=== PATIENT | female | born 1980 | race Caucasian/White ===

== ENCOUNTER 2017-09-08 08:05 | Emergency (ER) | payer OTHER, MEDICAID ==
[~2017-09-08] VITALS: Ht 149.9 cm; Wt 84.0 kg
[~2017-09-08 08:05] MED LIST: ACYC400T PO; ALBU8HFA IH; ATOR40TA72 PO; CLON-527 PO; DIPH25CA83 PO; GUAN2TAB PO; LEVO75TA7 PO; NORG1TAB83 PO; OXYC-145 PO; TRAZ-143 PO; ZOLP12.531 PO
[2017-09-08] MEDS ORDERED: NAPR-56 PO (08:45)
[2017-09-08] MEDS ORDERED: CYCL-1 PO (08:45)
[2017-09-08] MEDS ORDERED: ketorolac trometh inj. 60 MG/2 ML VIAL IM ONE (08:45)
[2017-09-08] MEDS ORDERED: orphenadrine citrate 60mg/2ml inj. IM ONE (08:45)
[2017-09-08 09:10] VITALS: BP 118/92
[2017-09-09] MEDS ORDERED: NAPR-56 PO (22:10)
[2017-09-09] MEDS ORDERED: TRAM1TAB36 PO (22:10)
== END 2017-09-08 09:11 | disposition home or self-care (01) ==
LOC: ER 08:06
DX: S39.012A Strain of muscle, fascia and tendon of lower back, initial encounter (principal); J44.9 Chronic obstructive pulmonary disease, unspecified; G89.29 Other chronic pain; F15.90 Other stimulant use, unspecified, uncomplicated; Z98.51 Tubal ligation status; Z79.899 Other long term (current) drug therapy; V87.7XXA Person injured in collision between other specified motor vehicles (traffic), initial encounter; Y93.89 Activity, other specified; Y92.89 Other specified places as the place of occurrence of the external cause; Y99.8 Other external cause status
CPT/HCPCS: 96372; 99284; J1885; J2360

== ENCOUNTER 2017-09-09 17:21 | Emergency (ER) | payer OTHER, MEDICAID ==
[~2017-09-09] VITALS: Ht 149.9 cm; Wt 84.5 kg
[~2017-09-09 17:21] MED LIST changes: +CYCL-1 PO; +NAPR-56 PO
[2017-09-09 17:47] VITALS: BP 138/97
[2017-09-09 19:19] LABS: URINE HCG NEGATIVE (NEG)
[2017-09-09 19:23] LABS: CLARITY,URINE SLIGHTLY CLOUDY (Clear); COLOR,URINE YELLOW (Yellow); GLUCOSE, URINE NEGATIVE (Neg); KETONES,URINE NEGATIVE (Neg); LEUKOCYTE ESTERASE ,URINE NEGATIVE (Neg); NITRITES, URINE NEGATIVE (Neg); OCCULT BLOOD,URINE NEGATIVE (Neg); PROTEIN,URINE NEGATIVE (Neg); UROBILINOGEN,URINE 0.2 E.U/dL (0.2-1.0)
[2017-09-09 19:26] LABS: UA COLLECTION TYPE CLN CATCH MIDSTREAM
[2017-09-09 19:32] LABS: D-DIMER 1.03 MG/L FEU (0-0.50)
[2017-09-09 19:33] LABS: BASOPHILS # (AUTO) 0.2 X10'3 (0-0.2); BASOPHILS % (AUTO) 1.3 % (0-1); EOSINOPHILS # (AUTO) 0.3 X10'3 (0-0.9); EOSINOPHILS % (AUTO) 1.7 % (0-6); HEMATOCRIT 40.5 % (35.0-45.0); HEMOGLOBIN 14.1 g/dl (12.0-16.0); LYMPHOCYTES # (AUTO) 4.8 X10'3 (1.1-4.8); LYMPHOCYTES % (AUTO) 30.1 % (21-51); MEAN CORPUSCULAR HEMOGLOBIN 29.5 PG (27.0-31.0); MEAN CORPUSCULAR HGB CONC 34.8 % (33.0-36.5); MEAN CORPUSCULAR VOLUME 84.8 FL (78-98); MEAN PLATELET VOLUME 9.6 FL (7.4-10.4); MONOCYTES # (AUTO) 0.8 X10'3 (0-0.9); MONOCYTES % (AUTO) 5.2 % (2-12); NEUTROPHILS # (AUTO) 9.8 X10'3 (1.8-7.7); NEUTROPHILS % (AUTO) 61.7 % (42-75); PLATELET COUNT 310 X10'3 (140-440); RED BLOOD COUNT 4.78 X10'6 (4.20-5.60); RED CELL DISTRIBUTION WIDTH 13.6 % (11.5-14.5)
[2017-09-09 19:33] LABS: BACTERIA,URINE NONE SEEN /HPF (Neg); RBC,URINE NONE SEEN /HPF (0-2); SQUAMOUS EPITHELIAL CELL,UR FEW /LPF (FEW); WBC,URINE NONE SEEN /HPF (0-4)
[2017-09-09 19:34] LABS: AMORPHOUS PHOSPHATES 1+
[2017-09-09 19:38] LABS: ALANINE AMINOTRANSFERASE 35 U/L (12-78); ALBUMIN 3.6 G/DL (3.4-5.0); ALBUMIN/GLOBULIN RATIO 0.9 (1.1-1.5); ALKALINE PHOSPHATASE 59 IU/L (46-116); ANION GAP 10 (8-16); ASPARTATE AMINO TRANSFERASE 21 U/L (10-37); BILIRUBIN,TOTAL 0.3 MG/DL (0.1-1.0); BLOOD UREA NITROGEN 12 MG/DL (7-18); BUN/CREATININE RATIO 16.7 (6.6-38.0); CALCIUM 8.6 MG/DL (8.5-10.1); CHLORIDE 104 MMOL/L (99-107); CREATININE 0.72 MG/DL (0.40-0.90); GLUCOSE 100 MG/DL (70-104); POTASSIUM 3.5 MMOL/L (3.5-5.1); SODIUM 138 MMOL/L (135-145); TOTAL CARBON DIOXIDE 23.6 MMOL/L (24-32); TOTAL PROTEIN 7.5 G/DL (6.4-8.2); eGFR > 90 ML/MIN
[2017-09-09] MEDS ORDERED: iohexol 350MG/ML 100ml bottle IV ONE (19:59)
[2017-09-09] MEDS ORDERED: magnesium 2GM in 50ml NS 50 ML IV ONE (20:00)
[2017-09-09] MEDS ORDERED: normal saline 1000ML IV soln IVB ONE (20:00)
[2017-09-09 20:38] LABS: URINE AMPHETAMINE SCREEN NEGATIVE (Neg); URINE BARBITUATE SCREEN NEGATIVE (Neg); URINE BENZODIAZEPINES SCREEN NEGATIVE (Neg); URINE CANNABINOID SCREEN NEGATIVE (Neg); URINE COCAINE SCREEN NEGATIVE (Neg); URINE METHADONE SCREEN NEGATIVE (Neg); URINE OPIATE SCREEN NEGATIVE (Neg); URINE PHENCYCLIDINE SCREEN NEGATIVE (Neg)
[2017-09-09 22:04] LABS: TOTAL CELLS COUNTED 100
[2017-09-09] MEDS ORDERED: NAPR-56 PO (22:10)
[2017-09-09] MEDS ORDERED: TRAM1TAB36 PO (22:10)
[2017-09-09 22:11] LABS: ANISOCYTOSIS FEW; PLATELET ESTIMATE NORMAL; SMUDGE CELLS 1+; TOXIC GRANULATION 1+
[2017-09-09 22:13] LABS: TOXIC VACUOLATION FEW
== END 2017-09-09 22:24 | disposition home or self-care (01) ==
LOC: ER 17:22
DX: S39.012A Strain of muscle, fascia and tendon of lower back, initial encounter (principal); J44.9 Chronic obstructive pulmonary disease, unspecified; F17.200 Nicotine dependence, unspecified, uncomplicated; F15.10 Other stimulant abuse, uncomplicated; G89.29 Other chronic pain; Z98.51 Tubal ligation status; Z88.1 Allergy status to other antibiotic agents; Z79.899 Other long term (current) drug therapy; V89.2XXA Person injured in unspecified motor-vehicle accident, traffic, initial encounter; Y93.89 Activity, other specified; Y92.410 Unspecified street and highway as the place of occurrence of the external cause; Y99.8 Other external cause status
CPT/HCPCS: 36415; 71275; 72100; 80053; 80305; 81001; 81025; 85025; 85379; 93971; 96361; 96365; 99285; J3475; J7030; Q9967

== ENCOUNTER 2017-12-12 04:29 | Emergency (ER) | payer MEDICAID, OTHER ==
[~2017-12-12] VITALS: Ht 149.9 cm; Wt 80.5 kg
[~2017-12-12 04:29] MED LIST changes: -NAPR-56 PO; +NORG1TAB3 PO; -NORG1TAB83 PO
[2017-12-12 04:34] VITALS: BP 126/79
[2017-12-12] MEDS ORDERED: PENI500T2 PO (04:45)
[2017-12-12] MEDS ORDERED: dexamethasone sod phosphate 10mg/ml inj PO STA (04:46)
[2017-12-12] MEDS ORDERED: penicillin V potassium 500mg tablet PO ONE (04:50)
== END 2017-12-12 05:02 | disposition home or self-care (01) ==
LOC: ER 04:29
DX: J02.9 Acute pharyngitis, unspecified (principal); J44.9 Chronic obstructive pulmonary disease, unspecified; G89.29 Other chronic pain; F15.10 Other stimulant abuse, uncomplicated; Z98.51 Tubal ligation status; Z79.899 Other long term (current) drug therapy; Z88.1 Allergy status to other antibiotic agents
CPT/HCPCS: 99283; J1100

== ENCOUNTER 2018-09-20 15:09 | Emergency (ER) | payer MEDICAID ==
[~2018-09-20] VITALS: Ht 167.6 cm; Wt 280.0 kg
[~2018-09-20 15:09] MED LIST changes: -TRAZ-143 PO; +TRAZ-218 PO
[2018-09-20 15:13] VITALS: BP 119/83
[2018-09-20] MEDS ORDERED: HYDROcodone/acetaminophen 5mg/325mg tablet PO ONE (17:00)
[2018-09-20] MEDS ORDERED: LORazepam 2 mg/ml vial IM ONE (18:15)
== END 2018-09-20 20:50 | disposition left against medical advice (07) ==
LOC: ER 15:10
DX: M54.2 Cervicalgia (principal); M54.12 Radiculopathy, cervical region; J44.9 Chronic obstructive pulmonary disease, unspecified; G89.29 Other chronic pain; F15.90 Other stimulant use, unspecified, uncomplicated; Z98.51 Tubal ligation status; Z88.1 Allergy status to other antibiotic agents; Z79.899 Other long term (current) drug therapy; W11.XXXA Fall on and from ladder, initial encounter; Y93.89 Activity, other specified; Y92.89 Other specified places as the place of occurrence of the external cause; Y99.9 Unspecified external cause status
CPT/HCPCS: 70450; 72125; 72128; 72141; 96372; 99285; J2060

== ENCOUNTER 2018-09-22 16:27 | Emergency (ER) | payer MEDICAID ==
[~2018-09-22] VITALS: Ht 149.9 cm; Wt 90.0 kg
[2018-09-22 16:36] VITALS: BP 128/84
[2018-09-22] MEDS ORDERED: GABA-532 PO (16:53)
== END 2018-09-22 17:22 | disposition home or self-care (01) ==
LOC: ER 16:28
DX: M54.2 Cervicalgia (principal); M79.602 Pain in left arm; M79.601 Pain in right arm; J44.9 Chronic obstructive pulmonary disease, unspecified; G89.29 Other chronic pain; F15.90 Other stimulant use, unspecified, uncomplicated; Z98.51 Tubal ligation status; Z88.1 Allergy status to other antibiotic agents; Z79.899 Other long term (current) drug therapy; W11.XXXD Fall on and from ladder, subsequent encounter
CPT/HCPCS: 99283

== ENCOUNTER 2018-09-27 14:48 | Emergency (ER) | payer MEDICAID ==
[~2018-09-27] VITALS: Ht 160 cm; Wt 81.8 kg
[~2018-09-27 14:48] MED LIST changes: +GABA-532 PO
[2018-09-27] MEDS ORDERED: ketorolac trometh inj. 60 MG/2 ML VIAL IM ONE (16:45)
[2018-09-27] MEDS ORDERED: diphenhydrAMINE 50 mg/ml inj IM ONE (16:45)
[2018-09-27] MEDS ORDERED: NAPR-1144 PO (16:46)
[2018-09-27 17:25] VITALS: BP 117/51
== END 2018-09-27 17:34 | disposition home or self-care (01) ==
LOC: ER 14:49
DX: G62.9 Polyneuropathy, unspecified (principal); R20.0 Anesthesia of skin; J44.9 Chronic obstructive pulmonary disease, unspecified; G89.29 Other chronic pain; F15.90 Other stimulant use, unspecified, uncomplicated; F17.210 Nicotine dependence, cigarettes, uncomplicated; Z98.51 Tubal ligation status; Z88.1 Allergy status to other antibiotic agents; Z79.899 Other long term (current) drug therapy
CPT/HCPCS: 96372; 99283; J1200; J1885

== ENCOUNTER 2018-11-21 04:09 | Emergency (ER) | payer MEDICAID ==
[~2018-11-21] VITALS: Ht 149.9 cm; Wt 91.7 kg
[~2018-11-21 04:09] MED LIST changes: +NAPR-1144 PO; -TRAZ-218 PO; +TRAZ-251 PO
[2018-11-21] MEDS ORDERED: dexamethasone sod phosphate 10mg/ml inj IV STA (04:25)
[2018-11-21] MEDS ORDERED: clindamycin 600mg/D5W 50ml 50 ML IV ONE (04:25)
[2018-11-21] MEDS ORDERED: normal saline 1000ML IV soln IVB ONE (04:25)
[2018-11-21] MEDS ORDERED: ketorolac trometh. 30mg/ml inj. IV ONE (04:25)
[2018-11-21] MEDS ORDERED: iohexol 300mg/ml 100ml inj. ONE (04:34)
[2018-11-21 05:12] LABS: BASOPHILS # (AUTO) 0.1 X10'3 (0-0.2); BASOPHILS % (AUTO) 0.6 % (0-1); EOSINOPHILS # (AUTO) 0.2 X10'3 (0-0.9); EOSINOPHILS % (AUTO) 1.2 % (0-6); HEMATOCRIT 37.4 % (35.0-45.0); HEMOGLOBIN 12.6 g/dl (12.0-16.0); LYMPHOCYTES # (AUTO) 4.1 X10'3 (1.1-4.8); LYMPHOCYTES % (AUTO) 23.2 % (21-51); MEAN CORPUSCULAR HEMOGLOBIN 28.6 PG (27.0-31.0); MEAN CORPUSCULAR HGB CONC 33.7 g/dL (33.0-36.5); MEAN CORPUSCULAR VOLUME 84.7 FL (78-98); MEAN PLATELET VOLUME 8.4 FL (7.4-10.4); MONOCYTES # (AUTO) 1.2 X10'3 (0-0.9); PLATELET COUNT 360 X10'3 (140-440); RED BLOOD COUNT 4.42 X10'6 (4.20-5.60); RED CELL DISTRIBUTION WIDTH 14.2 % (11.5-14.5); WHITE BLOOD COUNT 17.7 X10'3 (4.5-11.0)
--- NOTE | 2018-11-21 05:22 | NUR ---
Per Doctor Stella, there is not a need to swab patient because she already tested positive for strep at her urgent care.
[2018-11-21 05:25] LABS: ALANINE AMINOTRANSFERASE 56 U/L (12-78); ALBUMIN 2.5 G/DL (3.4-5.0); ALBUMIN/GLOBULIN RATIO 0.5 (1.1-1.5); ALKALINE PHOSPHATASE 102 IU/L (46-116); ANION GAP 11 (8-16); ASPARTATE AMINO TRANSFERASE 21 U/L (10-37); BILIRUBIN,TOTAL 0.2 MG/DL (0.1-1.0); BLOOD UREA NITROGEN 16 MG/DL (7-18); BUN/CREATININE RATIO 17.2 (6.6-38.0); CALCIUM 8.5 MG/DL (8.5-10.1); CHLORIDE 104 MMOL/L (99-107); CREATININE 0.93 MG/DL (0.40-0.90); GLUCOSE 108 MG/DL (70-104); POTASSIUM 3.6 MMOL/L (3.5-5.1); SODIUM 137 MMOL/L (135-145); TOTAL CARBON DIOXIDE 22.2 MMOL/L (24-32); TOTAL PROTEIN 7.2 G/DL (6.4-8.2); eGFR 68 ML/MIN
[2018-11-21 05:38] VITALS: BP 105/60
[2018-11-21] MEDS ORDERED: CLIN-96 PO (06:04)
== END 2018-11-21 06:11 | disposition home or self-care (01) ==
LOC: ER 04:09
DX: J36 Peritonsillar abscess (principal); J44.9 Chronic obstructive pulmonary disease, unspecified; G89.29 Other chronic pain; F15.90 Other stimulant use, unspecified, uncomplicated; Z98.51 Tubal ligation status; Z88.1 Allergy status to other antibiotic agents; Z79.2 Long term (current) use of antibiotics; Z79.899 Other long term (current) drug therapy
CPT/HCPCS: 36415; 70491; 80053; 85025; 96365; 96375; 99284; J1100; J1885; J7030; Q9967; J3490

== ENCOUNTER 2019-05-10 07:55 | Emergency (ER) | payer MEDICAID ==
[~2019-05-10] VITALS: Ht 147.3 cm; Wt 89.1 kg
[~2019-05-10 07:55] MED LIST changes: +CLIN-90 PO
--- NOTE | 2019-05-10 08:35 | NUR ---
PT REPORTS FALLING YESTERDAY AND REHURTING HER KNEE FROM PREVIOUS INJURY LAST MONTH. PTS KNEE NOT OBSERVED WITH ANY ABRASIONS OR SWELLING. PT WAS ABLE TO GET UP AND AMBULATE TO BATHROOM WITHOUT ASSIST.
[2019-05-10] MEDS ORDERED: ketorolac tromethamine 15mg/ml inj. IM ONE (09:15)
[2019-05-10] MEDS ORDERED: IBUP-1984 PO (09:32)
[2019-05-10 10:15] VITALS: BP 140/91
== END 2019-05-10 10:17 | disposition home or self-care (01) ==
LOC: ER 07:56 → MERGE 07:56 → ER 10:17
DX: S83.8X2A Sprain of other specified parts of left knee, initial encounter (principal); I10 Essential (primary) hypertension; E07.9 Disorder of thyroid, unspecified; F31.9 Bipolar disorder, unspecified; F15.90 Other stimulant use, unspecified, uncomplicated; F11.90 Opioid use, unspecified, uncomplicated; Z79.899 Other long term (current) drug therapy; W01.0XXA Fall on same level from slipping, tripping and stumbling without subsequent striking against object, initial encounter; Y93.89 Activity, other specified; Y92.89 Other specified places as the place of occurrence of the external cause; Y99.8 Other external cause status
CPT/HCPCS: 29505; 73564; 96372; 99284; J1885

== ENCOUNTER 2019-05-23 15:13 | Outpatient (CLI) | payer MEDICAID | END 2019-05-23 17:45 | disposition home or self-care (01) | LOC: ORTHO 15:13 → MERGE 16:00 → ORTHO 17:45 | PROVIDERS: ATTEND Orthopaedic Surgery | DX: S83.512A Sprain of anterior cruciate ligament of left knee, initial encounter (principal); S83.412A Sprain of medial collateral ligament of left knee, initial encounter; F17.200 Nicotine dependence, unspecified, uncomplicated; W01.198A Fall on same level from slipping, tripping and stumbling with subsequent striking against other object, initial encounter; Y93.89 Activity, other specified; Y92.89 Other specified places as the place of occurrence of the external cause; Y99.8 Other external cause status | CPT/HCPCS: G0463 ==

== ENCOUNTER 2019-08-02 07:59 | Day surgery (SDC) | payer MEDICAID ==
[2019-07-28 09:56] LABS: BASOPHILS # (AUTO) 0.2 X10'3 (0-0.2); BASOPHILS % (AUTO) 1.4 % (0-1); EOSINOPHILS # (AUTO) 0.3 X10'3 (0-0.9); EOSINOPHILS % (AUTO) 2.2 % (0-6); LYMPHOCYTES # (AUTO) 3.8 X10'3 (1.1-4.8); LYMPHOCYTES % (AUTO) 32.5 % (21-51); MEAN CORPUSCULAR HEMOGLOBIN 29.2 PG (27.0-31.0); MEAN CORPUSCULAR HGB CONC 34.5 g/dL (33.0-36.5); MEAN CORPUSCULAR VOLUME 84.7 FL (78-98); MEAN PLATELET VOLUME 9.1 FL (7.4-10.4); MONOCYTES # (AUTO) 0.6 X10'3 (0-0.9); MONOCYTES % (AUTO) 5.4 % (2-12); NEUTROPHILS # (AUTO) 6.8 X10'3 (1.8-7.7); NEUTROPHILS % (AUTO) 58.5 % (42-75); PRE OP HEMATOCRIT 42.5 % (35.0-45.0); PRE OP HEMOGLOBIN 14.7 g/dL (12.0-16.0); PRE OP PLATELET COUNT 329 X10'3 (140-440); RED BLOOD COUNT 5.03 X10'6 (4.20-5.60)
[2019-07-28 10:14] LABS: ALBUMIN 3.6 G/DL (3.4-5.0); ALBUMIN/GLOBULIN RATIO 0.9 (1.1-1.5); ALKALINE PHOSPHATASE 82 IU/L (46-116); BLOOD UREA NITROGEN 10 MG/DL (7-18); BUN/CREATININE RATIO 11.8 (6.6-38.0); CALCIUM 8.6 MG/DL (8.5-10.1); CHLORIDE 107 MMOL/L (99-107); CREATININE 0.85 MG/DL (0.40-0.90); PRE OP ALT 34 U/L (30-65); PRE OP ANION GAP 8 (8-16); PRE OP AST 21 U/L (10-37); PRE OP BILIRUB, TOTAL 0.2 MG/DL (0.0-1.0); PRE OP GLUCOSE 97 MG/DL (70-104); PRE OP POTASSIUM 3.9 MMOL/L (3.4-5.1); PRE OP SODIUM 138 MMOL/L (135-145); TOTAL CARBON DIOXIDE 22.9 MMOL/L (24-32); TOTAL PROTEIN 7.8 G/DL (6.4-8.2); eGFR 75 ML/MIN
[~2019-08-02] VITALS: Ht 149.9 cm; Wt 90.0 kg
[2019-08-02] VITALS (14 sets, daily range): BP systolic 102–122; BP diastolic 65–84
[~2019-08-02 07:59] MED LIST changes: -ACYC400T PO; -ALBU8HFA IH; -ATOR40TA72 PO; +BUPR150T8 PO; +CARI3CAP PO; -CLIN-90 PO; -CLON-527 PO; -CYCL-1 PO; -DIPH25CA83 PO; -GABA-532 PO; -GUAN2TAB PO; -NAPR-1144 PO; -NORG1TAB3 PO; +OXYB5TAB16 PO; -OXYC-145 PO; -TRAZ-251 PO; -ZOLP12.531 PO; +cefazolin/dext.iso 2gm/100ml 100 ML IV ONE; +famotidine 10mg tablet PO ONE; +ringers solution, lacted 1,000 ML IV SCH
[2019-08-02] MEDS ORDERED: ROPIVAcaine 0.5% (5mg/ml) 30ml vial ONE ×2 (10:14→10:22)
[2019-08-02] MEDS ORDERED: ceFAZolin 1000mg inj ONE (10:14)
[2019-08-02] MEDS ORDERED: fentaNYL /PF 50mcg/ml 5ml ampule ONE ×2 (10:22→11:44)
[2019-08-02] MEDS ORDERED: midazolam 2 mg/2 ml injection ONE (10:22)
[2019-08-02] MEDS ORDERED: propofol inj 20 ML IV ONE (10:23)
[2019-08-02] MEDS ORDERED: LIDOcaine 2% (20mg/ml) 5ml vial ONE (10:23)
[2019-08-02] MEDS ORDERED: sevoflurane 250ml liquid IH ONE (10:48)
[2019-08-02] MEDS ORDERED: dexamethasone sod phosphate 4mg/ml inj. ONE (11:20)
[2019-08-02] MEDS ORDERED: ondansetron/PF 4mg/2ml inj ONE (11:20)
[2019-08-02] MEDS ORDERED: ringers solution, lacted 1,000 ML IV SCH (11:28)
[2019-08-02] MEDS ORDERED: hydrALAZINE 20mg/ml inj. IV PRN (11:30)
[2019-08-02] MEDS ORDERED: fentaNYL/PF 50MCG/1 ML 2ML syringe IV PRN ×2 (11:30)
[2019-08-02] MEDS ORDERED: morphine 4 MG/ML inj SYRINge IV PRN (11:30)
[2019-08-02] MEDS ORDERED: labetalol 20mg/4ml (5mg/ml) syringe IV PRN (11:30)
[2019-08-02] MEDS ORDERED: ondansetron/PF 4mg/2ml inj IV PRN (11:30)
[2019-08-02] MEDS ORDERED: acetaminophen 1,000mg/100ml IV 100 ML IV ONE (11:35)
[2019-08-02] MEDS ORDERED: labetalol 20mg/4ml (5mg/ml) syringe IV ONE (11:49)
--- NOTE | 2019-08-02 12:44 | NUR ---
Received from OR via [facility] , accompanied by Anesthesiologist DR KOHLI and report given by Anesthesiolgist. PT AWAKE AND ALERT, SKIN PINK AND DRY, ABLE TO MOVE ALL EXTREMITIES WITH GOOD PEDAL PULSES. PIV RIGHT HAND PATENT, C/O SEVERE PAIN AT A LEVEL 8. DRESSING CLEAN DRY AND INTACT WITH BRACE APPLIED. ABD SOFT, NO C/O N/V.
[2019-08-02] MEDS: morphine 4 MG/ML inj SYRINge IV PRN ×2 (13:07→14:10)
[2019-08-02] MEDS ORDERED: diphenhydrAMINE 50 mg/ml inj IV PRN (13:15)
[2019-08-02] MEDS ORDERED: HYDROcodone/acetaminophen 10/325mg tab PO ONE (14:05)
--- NOTE | 2019-08-02 14:34 | NUR ---
PT AWAKE AND ALERT, SKIN PINK AND DRY, ABD SOFT, PEDAL PULSES PRESENT, PAIN LEVEL DECREASED TO 6, PIV RIGHT HAND D/CD CATH TIP INTACT, NO C/O NAUSEA, DRESSING DRY AND INTACT, BRACE IN PLACE,DISCHARGE INSTRUCTIONS GIVEN VERBALIZED UNDERSTANDING. DICHARGED VIA WHEELCHAIR TO PRIVATE VEHICLE
== END 2019-08-02 14:34 | disposition home or self-care (01) ==
LOC: PAS 07:59
PROVIDERS: ATTEND Orthopaedic Surgery
DX: S83.512A Sprain of anterior cruciate ligament of left knee, initial encounter (principal); S83.242A Other tear of medial meniscus, current injury, left knee, initial encounter; G89.18 Other acute postprocedural pain; J45.909 Unspecified asthma, uncomplicated; F31.9 Bipolar disorder, unspecified; F41.9 Anxiety disorder, unspecified; E03.9 Hypothyroidism, unspecified; E66.01 Morbid (severe) obesity due to excess calories; Z68.41 Body mass index [BMI] 40.0-44.9, adult; Z79.899 Other long term (current) drug therapy; Z98.890 Other specified postprocedural states; X58.XXXA Exposure to other specified factors, initial encounter; Y93.89 Activity, other specified; Y92.89 Other specified places as the place of occurrence of the external cause; Y99.8 Other external cause status
CPT/HCPCS: 29881; 29888; 36415; 64447; 80053; 82948; 85025; 93005; C1713; J0131; J0690; J1100; J1200; J2001; J2250; J2270; J2405; J2704; J3010; L1832; A4215; A4618; A6449; A7000; J2795; J3490; J7120

== ENCOUNTER 2019-08-22 15:18 | Outpatient (CLI) | payer MEDICAID ==
[~2019-08-22 15:18] MED LIST changes: -cefazolin/dext.iso 2gm/100ml 100 ML IV ONE; -famotidine 10mg tablet PO ONE; -ringers solution, lacted 1,000 ML IV SCH
== END 2019-08-22 16:07 | disposition home or self-care (01) ==
LOC: ORTHO 15:18
PROVIDERS: ATTEND Orthopaedic Surgery
DX: S83.512A Sprain of anterior cruciate ligament of left knee, initial encounter (principal); X58.XXXA Exposure to other specified factors, initial encounter; Y93.89 Activity, other specified; Y92.89 Other specified places as the place of occurrence of the external cause; Y99.8 Other external cause status
CPT/HCPCS: G0463

== ENCOUNTER 2020-04-25 09:06 | Emergency (ER) | payer MEDICAID ==
[~2020-04-25] VITALS: Ht 149.9 cm; Wt 91.7 kg
[2020-04-25 09:08] VITALS: BP 112/64
[2020-04-25] MEDS ORDERED: HYDROcodone/acetaminophen 10/325mg tab PO ONE (09:50)
[2020-04-25] MEDS ORDERED: ketorolac trometh inj. 60 MG/2 ML VIAL IM ONE (09:50)
== END 2020-04-25 10:10 | disposition home or self-care (01) ==
LOC: ER 09:07
DX: G89.29 Other chronic pain (principal); M25.562 Pain in left knee; J44.9 Chronic obstructive pulmonary disease, unspecified; F41.9 Anxiety disorder, unspecified; F31.9 Bipolar disorder, unspecified; F15.90 Other stimulant use, unspecified, uncomplicated; Z98.51 Tubal ligation status; Z98.890 Other specified postprocedural states; Z79.899 Other long term (current) drug therapy
CPT/HCPCS: 96372; 99283; J1885

== ENCOUNTER 2020-10-31 08:07 | Day surgery (SDC) | payer MEDICAID ==
[2020-10-25 11:15] LABS: BASOPHILS # (AUTO) 0.1 X10'3 (0-0.2); BASOPHILS % (AUTO) 1.4 % (0-1); EOSINOPHILS # (AUTO) 0.3 X10'3 (0-0.9); EOSINOPHILS % (AUTO) 2.9 % (0-6); LYMPHOCYTES # (AUTO) 3.6 X10'3 (1.1-4.8); MEAN CORPUSCULAR HEMOGLOBIN 28.7 PG (27.0-31.0); MEAN CORPUSCULAR HGB CONC 34.1 g/dL (33.0-36.5); MEAN CORPUSCULAR VOLUME 84.4 FL (78-98); MEAN PLATELET VOLUME 9.8 FL (7.4-10.4); MONOCYTES # (AUTO) 0.6 X10'3 (0-0.9); MONOCYTES % (AUTO) 6.2 % (2-12); NEUTROPHILS # (AUTO) 5.4 X10'3 (1.8-7.7); NEUTROPHILS % (AUTO) 53.5 % (42-75); PRE OP HEMATOCRIT 41.2 % (35.0-45.0); PRE OP PLATELET COUNT 284 X10'3 (140-440); RED BLOOD COUNT 4.88 X10'6 (4.20-5.60); RED CELL DISTRIBUTION WIDTH 14.3 % (11.5-14.5)
[2020-10-25 11:23] LABS: HCG SERUM QL NEGATIVE
[2020-10-25 11:28] LABS: ALBUMIN 3.4 G/DL (3.4-5.0); ALBUMIN/GLOBULIN RATIO 0.8 (1.1-1.5); ALKALINE PHOSPHATASE 66 IU/L (46-116); BLOOD UREA NITROGEN 21 MG/DL (7-18); BUN/CREATININE RATIO 27.3 (6.6-38.0); CALCIUM 8.9 MG/DL (8.5-10.1); CHLORIDE 105 MMOL/L (99-107); CREATININE 0.77 MG/DL (0.40-0.90); PRE OP ALT 24 U/L (30-65); PRE OP ANION GAP 11 (8-16); PRE OP AST 24 U/L (10-37); PRE OP BILIRUB, TOTAL 0.2 MG/DL (0.0-1.0); PRE OP GLUCOSE 94 MG/DL (70-104); PRE OP POTASSIUM 3.9 MMOL/L (3.4-5.1); PRE OP SODIUM 140 MMOL/L (135-145); TOTAL CARBON DIOXIDE 24.1 MMOL/L (24-32); TOTAL PROTEIN 7.5 G/DL (6.4-8.2); eGFR 83 ML/MIN
[~2020-10-31] VITALS: Ht 147.3 cm; Wt 85.7 kg
[~2020-10-31 08:07] MED LIST changes: +BUPR1PAT TOP; +CALC-1215 PO; -CARI3CAP PO; +CHOL100025 PO; +CYAN-51 PO; +FLUO-12 PO; +METH20TA PO; +MULT-1130 PO; +MULT-85 PO; +OMEG-143 PO; +OMEP10SU2 PO; -OXYB5TAB16 PO; +OXYB5TAB29 PO; +SIMV5TAB58 PO; +TEMA30CA PO; +TRAZ-251 PO; +ceFOXitin 2GM-NS 100mL ADDvant 100 ML IV ONE; +famotidine 20mg tablet PO ONE; +ringers solution, lacted 1,000 ML IV SCH
[2020-10-31 10:00] VITALS: BP 130/64
[2020-10-31] MEDS ORDERED: fentaNYL/PF 50MCG/1 ML 2ML syringe IV PRN ×2 (10:45)
[2020-10-31] MEDS ORDERED: labetalol 20mg/4ml (5mg/ml) syringe IV PRN (10:45)
[2020-10-31] MEDS ORDERED: morphine 2 MG/ML inj. syringe IV PRN (10:45)
[2020-10-31] MEDS ORDERED: morphine 4 MG/ML inj SYRINge IV PRN ×2 (10:45→16:00)
[2020-10-31] MEDS ORDERED: hydrALAZINE 20mg/ml inj. IV PRN (10:45)
[2020-10-31] MEDS ORDERED: ondansetron/PF 4mg/2ml inj IV PRN (10:45)
[2020-10-31] MEDS ORDERED: ringers solution, lacted 1,000 ML IV SCH (10:45)
[2020-10-31] MEDS ORDERED: LIDOcaine 1% W/epiNEPHrine 1:100,000 20ml vial ONE (11:54)
[2020-10-31] MEDS ORDERED: BUPIVAcaine 0.5% inj/PF 30 ML ONE (11:55)
[2020-10-31] MEDS ORDERED: neostigmine methylsulfate 1 MG/ML 10ml vial ONE (12:09)
[2020-10-31] MEDS ORDERED: sevoflurane 250ml liquid IH ONE (12:09)
[2020-10-31] MEDS ORDERED: rocuronium 10mg/ml inj IV ONE ×2 (12:09→12:15)
[2020-10-31] MEDS ORDERED: LIDOcaine 2% (20mg/ml) 5ml vial ONE (12:14)
[2020-10-31] MEDS ORDERED: propofol inj 20 ML IV ONE (12:14)
[2020-10-31] MEDS ORDERED: fentaNYL/PF 50MCG/1 ML 2ML syringe ONE (12:14)
[2020-10-31] MEDS ORDERED: ondansetron/PF 4mg/2ml inj ONE (12:14)
[2020-10-31] MEDS ORDERED: midazolam 1 mg/ML 2ml injection ONE (12:14)
[2020-10-31] MEDS ORDERED: glycopyrrolate 0.2mg/ml inj ONE (12:15)
[2020-10-31] MEDS ORDERED: dexamethasone sod phosphate 4mg/ml inj. ONE (12:26)
[2020-10-31] MEDS ORDERED: labetalol 20mg/4ml (5mg/ml) syringe IV ONE (13:25)
[2020-10-31] MEDS ORDERED: BUPIVAcaine 0.5% inj/PF 30 ml vial IJ ONE (13:25)
[2020-10-31] MEDS ORDERED: ceFAZolin 1000mg inj ONE (13:51)
[2020-10-31] MEDS ORDERED: morphine 10mg/ml inj. ONE (14:04)
[2020-10-31] MEDS ORDERED: bacitracin 15gm ointment TP ONE (14:27)
[2020-10-31] MEDS ORDERED: ketorolac trometh. 30mg/ml inj. ONE (14:36)
--- NOTE | 2020-10-31 14:45 | NUR ---
Received from OR via [facility], accompanied by Anesthesiologist KAMILLA and report given by Anesthesiolgist. PT DROWSY, OXYGENATING WELL ON 10 LPM O2 VIA MASK, NO RESP DISTRESS NOTED.PT EXTREMELY PAINFUL, CRYING AND WRITHING ON GURNEY. MEDICATED PRN SEE EMAR. 3 ABD TROCAR SITES WITH LARGE BANDAIDS CDI. VSS, NO NAUSEA.
[2020-10-31] MEDS ORDERED: acetaminophen 1,000mg/100ml IV 100 ML IV SCH (16:00)
[2020-10-31] MEDS ORDERED: midazolam 1 mg/ML 2ml injection IV ONE (16:00)
--- NOTE | 2020-10-31 17:35 | NUR ---
PAIN LEVEL UNDER CONTROL, PER PT AFTER MEDS GIVEN IN PACU. VSS. TOLERATING PO FLUIDS WELL. DC INSTRUCTIONS EXPLAINED TO PT, SHE VERBALIZED UNDERSTANDING. DCD IN STABLE CONDITION, TAKEN TO CAR VIA WC.
== END 2020-10-31 17:35 | disposition home or self-care (01) ==
LOC: PAS 08:07
PROVIDERS: ATTEND Obstetrics & Gynecology
DX: N92.0 Excessive and frequent menstruation with regular cycle (principal); N94.6 Dysmenorrhea, unspecified; N39.3 Stress incontinence (female) (male); N90.69 Other specified hypertrophy of vulva; K66.8 Other specified disorders of peritoneum; Z20.822 Contact with and (suspected) exposure to COVID-19; N85.4 Malposition of uterus; I45.10 Unspecified right bundle-branch block; E03.9 Hypothyroidism, unspecified; F31.9 Bipolar disorder, unspecified; F90.9 Attention-deficit hyperactivity disorder, unspecified type; E78.00 Pure hypercholesterolemia, unspecified; M81.0 Age-related osteoporosis without current pathological fracture; F41.9 Anxiety disorder, unspecified; K21.9 Gastro-esophageal reflux disease without esophagitis; E66.9 Obesity, unspecified; Z68.39 Body mass index [BMI] 39.0-39.9, adult; J45.909 Unspecified asthma, uncomplicated; Z87.891 Personal history of nicotine dependence; Z88.8 Allergy status to other drugs, medicaments and biological substances; Z98.51 Tubal ligation status; Z98.890 Other specified postprocedural states; Z79.899 Other long term (current) drug therapy
CPT/HCPCS: 36415; 49321; 56620; 57288; 58563; 80053; 82948; 84703; 85025; 86885; 86900; 86901; 93005; A4649; C1758; C1771; J0690; J0694; J1100; J1885; J2001; J2250; J2270; J2405; J2704; J2710; J3010; J7030; J7120; U0003; U0005; A4355; A4618; A6258; A7000; J3490

== ENCOUNTER 2021-02-18 17:42 | Emergency (ER) | payer MEDICAID ==
[~2021-02-18] VITALS: Ht 147.3 cm; Wt 182.4 kg
[~2021-02-18 17:42] MED LIST changes: -ceFOXitin 2GM-NS 100mL ADDvant 100 ML IV ONE; -famotidine 20mg tablet PO ONE; -ringers solution, lacted 1,000 ML IV SCH
[2021-02-18 18:23] LABS: BASOPHILS % (AUTO) 0.8 % (0-1); EOSINOPHILS % (AUTO) 0.4 % (0-6); HEMATOCRIT 43.3 % (35.0-45.0); HEMOGLOBIN 14.5 g/dl (12.0-16.0); LYMPHOCYTES # (AUTO) 1.7 X10'3 (1.1-4.8); LYMPHOCYTES % (AUTO) 39.9 % (21-51); MEAN CORPUSCULAR HEMOGLOBIN 27.8 PG (27.0-31.0); MEAN CORPUSCULAR HGB CONC 33.6 g/dL (33.0-36.5); MEAN CORPUSCULAR VOLUME 82.9 FL (78-98); MEAN PLATELET VOLUME 9.9 FL (7.4-10.4); MONOCYTES # (AUTO) 0.1 X10'3 (0-0.9); MONOCYTES % (AUTO) 2.8 % (2-12); NEUTROPHILS # (AUTO) 2.4 X10'3 (1.8-7.7); NEUTROPHILS % (AUTO) 56.1 % (42-75); PLATELET COUNT 190 X10'3 (140-440); RED BLOOD COUNT 5.22 X10'6 (4.20-5.60); RED CELL DISTRIBUTION WIDTH 14.3 % (11.5-14.5); WHITE BLOOD COUNT 4.3 X10'3 (4.5-11.0)
[2021-02-18 18:32] LABS: D-DIMER 0.95 MG/L FEU (0-0.50)
[2021-02-18 18:34] VITALS: BP 110/72
[2021-02-18 18:39] LABS: ALANINE AMINOTRANSFERASE 33 U/L (12-78); ALBUMIN 3.7 G/DL (3.4-5.0); ALBUMIN/GLOBULIN RATIO 0.9 (1.1-1.5); ALKALINE PHOSPHATASE 86 IU/L (46-116); ANION GAP 11 (8-16); ASPARTATE AMINO TRANSFERASE 43 U/L (10-37); BILIRUBIN,TOTAL 0.3 MG/DL (0.1-1.0); BLOOD UREA NITROGEN 9 MG/DL (7-18); BUN/CREATININE RATIO 9.5 (6.6-38.0); CALCIUM 8.1 MG/DL (8.5-10.1); CHLORIDE 109 MMOL/L (99-107); CREATININE 0.95 MG/DL (0.40-0.90); GLUCOSE 100 MG/DL (70-104); POTASSIUM 4.2 MMOL/L (3.5-5.1); SODIUM 142 MMOL/L (135-145); TOTAL CARBON DIOXIDE 21.6 MMOL/L (24-32); TOTAL PROTEIN 7.6 G/DL (6.4-8.2); eGFR 65 ML/MIN
[2021-02-18] MEDS ORDERED: iohexol 350MG/ML 100ml bottle IV ONE (19:07)
[2021-02-18] MEDS ORDERED: acetaminophen 325mg tablet PO ONE (19:20)
--- NOTE | 2021-02-18 19:32 | NUR ---
PT TO CT, PT C/O HEADACHE, Hung THOMPSON GAVE VERBAL ORDER FOR TYLENOL 650MG, PT ALSO C/O SOB NOW, ASKING FOR BREATHING TX, PT IS TALKING FULL SENTENCES, "CHEST TIGHTNESS"
[2021-02-18] MEDS ORDERED: ALBUTEROL INHALER 1 PUFF/90 MCG INHALER IH PRN (19:40)
[2021-02-18] MEDS ORDERED: ALBU6.7H9 INH (20:06)
[2021-02-18] MEDS ORDERED: AZIT500T PO (20:06)
[2021-02-18] MEDS ORDERED: DEXA4TAB67 PO (20:06)
== END 2021-02-18 21:09 | disposition home or self-care (01) ==
LOC: ER 17:43
DX: U07.1 COVID-19 (principal); J12.82 Pneumonia due to coronavirus disease 2019; R07.89 Other chest pain; R06.02 Shortness of breath; J44.9 Chronic obstructive pulmonary disease, unspecified; G89.29 Other chronic pain; F41.9 Anxiety disorder, unspecified; F31.9 Bipolar disorder, unspecified; F17.200 Nicotine dependence, unspecified, uncomplicated; F15.90 Other stimulant use, unspecified, uncomplicated; Z98.51 Tubal ligation status; Z88.6 Allergy status to analgesic agent; Z88.8 Allergy status to other drugs, medicaments and biological substances; Z79.2 Long term (current) use of antibiotics; Z79.899 Other long term (current) drug therapy
CPT/HCPCS: 36415; 71045; 71275; 80053; 83880; 84484; 85025; 85379; 93005; 94640; 99285; Q9967; 94760

== ENCOUNTER 2022-10-26 05:29 | Day surgery (SDC) | payer MEDICAID ==
[2022-10-22 16:19] LABS: BASOPHILS # (AUTO) 0.1 X10'3 (0-0.2); BASOPHILS % (AUTO) 0.4 % (0-1); EOSINOPHILS # (AUTO) 0.2 X10'3 (0-0.9); EOSINOPHILS % (AUTO) 1.2 % (0-6); LYMPHOCYTES # (AUTO) 2.8 X10'3 (1.1-4.8); LYMPHOCYTES % (AUTO) 21.7 % (21-51); MEAN CORPUSCULAR HEMOGLOBIN 29.6 PG (27.0-31.0); MEAN CORPUSCULAR HGB CONC 33.3 g/dL (33.0-36.5); MEAN PLATELET VOLUME 9.5 FL (7.4-10.4); MONOCYTES # (AUTO) 0.6 X10'3 (0-0.9); NEUTROPHILS # (AUTO) 9.1 X10'3 (1.8-7.7); NEUTROPHILS % (AUTO) 71.7 % (42-75); PRE OP HEMATOCRIT 41.4 % (35.0-45.0); PRE OP HEMOGLOBIN 13.8 g/dL (12.0-16.0); PRE OP PLATELET COUNT 283 X10'3 (140-440); RED BLOOD COUNT 4.65 X10'6 (4.20-5.60); RED CELL DISTRIBUTION WIDTH 13.1 % (11.5-14.5)
[2022-10-22 16:37] LABS: ALBUMIN 3.6 G/DL (3.4-5.0); ALBUMIN/GLOBULIN RATIO 0.9 (1.1-1.5); ALKALINE PHOSPHATASE 52 IU/L (46-116); BLOOD UREA NITROGEN 14 MG/DL (7-18); BUN/CREATININE RATIO 20.9 (10.0-20.0); CALCIUM 9.3 MG/DL (8.5-10.1); CHLORIDE 103 MMOL/L (99-107); CREATININE 0.67 MG/DL (0.40-0.90); PRE OP ALT 23 U/L (30-65); PRE OP ANION GAP 9 (8-16); PRE OP AST 21 U/L (10-37); PRE OP BILIRUB, TOTAL 0.3 MG/DL (0.0-1.0); PRE OP GLUCOSE 102 MG/DL (70-104); PRE OP POTASSIUM 3.7 MMOL/L (3.4-5.1); PRE OP SODIUM 138 MMOL/L (135-145); TOTAL CARBON DIOXIDE 26.3 MMOL/L (24-32); TOTAL PROTEIN 7.4 G/DL (6.4-8.2); eGFR > 90 ML/MIN
[~2022-10-26] VITALS: Ht 147.3 cm; Wt 59.1 kg
[2022-10-26] VITALS (8 sets, daily range): BP systolic 94–106; BP diastolic 61–68
[~2022-10-26 05:29] MED LIST changes: +BUPR-352 PO; -BUPR150T8 PO; -BUPR1PAT TOP; -CALC-1215 PO; -CHOL100025 PO; -CYAN-51 PO; -FLUO-12 PO; -METH20TA PO; -MULT-1130 PO; -MULT-85 PO; -OMEG-143 PO; -OXYB5TAB29 PO; +SIMV-342 PO; -SIMV5TAB58 PO; -TEMA30CA PO; -TRAZ-251 PO; +ringers solution, lacted 1,000 ML IV SCH
[2022-10-26] MEDS ORDERED: famotidine 20mg tablet PO ONE (05:30)
[2022-10-26] MEDS ORDERED: cefazolin 2gm/D5W 100mL 100 ML IV ONE (05:30)
[2022-10-26] MEDS ORDERED: BUPIVAcaine/PF 2.5 mg/ml (0.25%) 30ml vial ONE (06:47)
[2022-10-26] MEDS ORDERED: LIDOcaine 1% 30ml preserv. free vial ONE (07:37)
[2022-10-26] MEDS ORDERED: MIDAZolam 1 MG/ML 5ML VIAL ONE (07:40)
[2022-10-26] MEDS ORDERED: fentaNYL/PF 50MCG/1 ML 2ML syringe ONE (07:40)
[2022-10-26] MEDS ORDERED: ketorolac trometh. 30mg/ml inj. ONE (07:51)
--- NOTE | 2022-10-26 08:18 | NUR ---
Received from OR via [facility], accompanied by Anesthesiologist DR JERONIMO and report given by Anesthesiologist AND CARBONIZER. PT DROWSY, VSS, PT GROANS W/MOVEMENT OF RIGHT ARM, RIGHT ELBOW/FOREARM AND HAND/WRIST W/BIAS DRSG COVERING INCISION/DRSG CDI, FINGERS PWD, SNAPPER ON 1-2 SECONDS. Addendum: 10/26/22 at 0840 by Lashonda Pichardo RN Amended: Links added.
[2022-10-26] MEDS ORDERED: acetaminophen 1,000mg/100ml IV 100 ML IV SCH (08:25)
--- NOTE | 2022-10-26 09:18 | NUR ---
PT UP AND STABLE W/AMBULATION, VOIDED. PAIN TO ARM/HAND MINIMAL. DRSG REMAINS CDI. D/C INSTRUCTIONS GIVEN AND GONE OVER W/PT WHO VERBALIZED UNDERSTANDING. PT D/CD TO HOME VIA W/C TO PRIVATE VEHICLE W/O INCIDENT. Addendum: 10/26/22 at 0937 by Lashonda Pichardo RN Amended: Links added.
== END 2022-10-26 09:18 | disposition home or self-care (01) ==
LOC: PAS 05:29
PROVIDERS: ATTEND Orthopaedic Surgery Hand Surgery
DX: G56.01 Carpal tunnel syndrome, right upper limb (principal); G56.21 Lesion of ulnar nerve, right upper limb; J45.909 Unspecified asthma, uncomplicated; I45.10 Unspecified right bundle-branch block; K21.9 Gastro-esophageal reflux disease without esophagitis; E03.9 Hypothyroidism, unspecified; F90.9 Attention-deficit hyperactivity disorder, unspecified type; F31.9 Bipolar disorder, unspecified; F41.9 Anxiety disorder, unspecified; Z98.890 Other specified postprocedural states; Z79.899 Other long term (current) drug therapy; Z88.8 Allergy status to other drugs, medicaments and biological substances; F17.210 Nicotine dependence, cigarettes, uncomplicated; F12.90 Cannabis use, unspecified, uncomplicated; Z98.51 Tubal ligation status; Z98.84 Bariatric surgery status; F19.11 Other psychoactive substance abuse, in remission; Z80.9 Family history of malignant neoplasm, unspecified
CPT/HCPCS: 29848; 36415; 64718; 80053; 82948; 85025; 93005; J0131; J0690; J1885; J2250; J3010; J3490; J7030; J7120; Z7506; Z7512; A4215; A6449; A7000

== ENCOUNTER 2023-04-19 05:34 | Day surgery (SDC) | payer MEDICAID ==
[2023-04-15 11:31] LABS: BASOPHILS # (AUTO) 0.1 X10'3 (0-0.2); BASOPHILS % (AUTO) 0.7 % (0-1); EOSINOPHILS # (AUTO) 0.2 X10'3 (0-0.9); LYMPHOCYTES # (AUTO) 3.3 X10'3 (1.1-4.8); LYMPHOCYTES % (AUTO) 34.8 % (21-51); MEAN CORPUSCULAR HEMOGLOBIN 30.4 PG (27.0-31.0); MEAN CORPUSCULAR HGB CONC 33.9 g/dL (33.0-36.5); MEAN CORPUSCULAR VOLUME 89.8 FL (78-98); MEAN PLATELET VOLUME 9.4 FL (7.4-10.4); MONOCYTES # (AUTO) 0.6 X10'3 (0-0.9); NEUTROPHILS # (AUTO) 5.3 X10'3 (1.8-7.7); NEUTROPHILS % (AUTO) 56.5 % (42-75); PRE OP HEMOGLOBIN 14.6 g/dL (12.0-16.0); PRE OP PLATELET COUNT 279 X10'3 (140-440); PRE OP WHITE BLOOD COUNT 9.4 10'3 (4.8-10.8); RED BLOOD COUNT 4.78 X10'6 (4.20-5.60); RED CELL DISTRIBUTION WIDTH 13.4 % (11.5-14.5)
[2023-04-15 11:47] LABS: ALBUMIN 3.2 G/DL (3.4-5.0); ALBUMIN/GLOBULIN RATIO 0.8 (1.1-1.5); ALKALINE PHOSPHATASE 61 IU/L (46-116); BLOOD UREA NITROGEN 9 MG/DL (7-18); BUN/CREATININE RATIO 11.4 (10.0-20.0); CALCIUM 8.5 MG/DL (8.5-10.1); CHLORIDE 108 MMOL/L (99-107); CREATININE 0.79 MG/DL (0.40-0.90); PRE OP ALT 23 U/L (30-65); PRE OP ANION GAP 7 (8-16); PRE OP BILIRUB, TOTAL 0.2 MG/DL (0.0-1.0); PRE OP GLUCOSE 82 MG/DL (70-104); PRE OP POTASSIUM 3.9 MMOL/L (3.4-5.1); PRE OP SODIUM 140 MMOL/L (135-145); eGFR 80 ML/MIN
[2023-04-15 12:14] LABS: PRE OP AST 18 U/L (10-37)
[~2023-04-19] VITALS: Ht 147.3 cm; Wt 59.7 kg
[~2023-04-19 05:34] MED LIST changes: +BUPR-317 PO; -BUPR-352 PO; +BUPR300F3 SL; +HYDR-3972 PO; -OMEP10SU2 PO; +cefazolin 2gm/D5W 100mL 100 ML IV ONE; +famotidine 20mg tablet PO ONE
[2023-04-19 05:40] VITALS: BP 93/59; PULSE 75; RESP 16; TEMP 97.9; O2SAT 97; O2SAT 99
[2023-04-19] MEDS ORDERED: BUPIVAcaine/PF 2.5mg/ml (0.25%) 10ml vial ONE (07:09)
[2023-04-19] MEDS ORDERED: fentaNYL/PF 50MCG/1 ML 2ML syringe ONE (07:52)
[2023-04-19] MEDS ORDERED: midazolam 1 mg/ML 2ml injection ONE (07:52)
[2023-04-19] MEDS ORDERED: BUPIVAcaine/PF 2.5mg/ml (0.25%) 10ml vial IJ ONE (08:10)
[2023-04-19 08:25] VITALS: BP 91/50; PULSE 79; RESP 14
[2023-04-19] MEDS ORDERED: ringers solution, lacted 1,000 ML IV SCH (08:25)
[2023-04-19] MEDS ORDERED: proCHLORperazine 10 MG/2 ml inj IV PRN (08:25)
[2023-04-19] MEDS ORDERED: morphine 2 MG/ML inj. syringe IV PRN (08:25)
[2023-04-19] MEDS ORDERED: morphine 4 MG/ML inj SYRINge IV PRN (08:25)
[2023-04-19] MEDS ORDERED: meperidine/PF 25mg/ml syringe IV PRN ×3 (08:25)
[2023-04-19] MEDS ORDERED: ondansetron/PF 4mg/2ml inj IV PRN (08:25)
--- NOTE | 2023-04-19 08:25 | NUR ---
Received from OR via [facility] IN STABLE CONDITION , accompanied by Anesthesiologist and [facility] report given by [facility] AND Anesthesiolgist. Addendum: 04/19/23 at 0846 by Twila Helms RN Amended: Links added.
[2023-04-19 08:30] VITALS: BP 108/74; PULSE 81; RESP 16; O2SAT 100
[2023-04-19 08:40] VITALS: BP 102/69; PULSE 77; RESP 15; O2SAT 100
[2023-04-19] MEDS ORDERED: LIDOcaine 0.5% (5mg/ml) 50ml vial ONE (08:45)
[2023-04-19] MEDS ORDERED: propofol inj 20 ML IV ONE (08:45)
[2023-04-19 08:50] VITALS: BP 104/60; PULSE 74; RESP 19; O2SAT 100
--- NOTE | 2023-04-19 08:55 | NUR ---
PATIENT DISCHARGED FROM PACU IN STABLE CONDITION AFTER VERBAL AND WRITTEN DISCHARGE INSTRUCTIONS GIVEN. PATIENT GAVE VERBAL UNDERSTANDING OF INSTRUCTIONS GIVEN. PATIENT LEFT FACILITY VIA WHEELCHAIR WITH RN. Addendum: 04/19/23 at 0900 by Twila Helms RN Amended: Links added.
== END 2023-04-19 08:55 | disposition home or self-care (01) ==
LOC: PAS 05:34
PROVIDERS: ATTEND Orthopaedic Surgery Hand Surgery
DX: G56.02 Carpal tunnel syndrome, left upper limb (principal); M65.342 Trigger finger, left ring finger; M65.332 Trigger finger, left middle finger; J45.909 Unspecified asthma, uncomplicated; F17.290 Nicotine dependence, other tobacco product, uncomplicated; K21.9 Gastro-esophageal reflux disease without esophagitis; E03.9 Hypothyroidism, unspecified; F31.9 Bipolar disorder, unspecified; F90.9 Attention-deficit hyperactivity disorder, unspecified type; F41.9 Anxiety disorder, unspecified; F19.11 Other psychoactive substance abuse, in remission; F12.90 Cannabis use, unspecified, uncomplicated; Z98.51 Tubal ligation status; Z98.84 Bariatric surgery status; Z98.890 Other specified postprocedural states; Z88.8 Allergy status to other drugs, medicaments and biological substances; Z88.1 Allergy status to other antibiotic agents; Z79.899 Other long term (current) drug therapy; Z79.82 Long term (current) use of aspirin
CPT/HCPCS: 26055; 29848; 36415; 80053; 82948; 85025; J0690; J2250; J2704; J3010; J3490; J7030; J7120; Z7506; Z7512; A4215; A7000

== ENCOUNTER 2025-05-17 11:45 | Emergency (ER) | payer MEDICAID ==
[~2025-05-17] VITALS: Ht 157.5 cm; Wt 60.4 kg
[~2025-05-17 11:45] MED LIST changes: -BUPR-317 PO; +BUPR-726 PO; -cefazolin 2gm/D5W 100mL 100 ML IV ONE; -famotidine 20mg tablet PO ONE; -ringers solution, lacted 1,000 ML IV SCH
[2025-05-17 11:54] VITALS: BP 131/83; PULSE 77; RESP 16; TEMP 97.3; O2SAT 100
== END 2025-05-17 16:05 | disposition left against medical advice (07) ==
LOC: ER 11:47
DX: R07.89 Other chest pain (principal)
CPT/HCPCS: 99281

== ENCOUNTER 2025-07-03 13:56 | Emergency (ER) | payer MEDICAID ==
[~2025-07-03] VITALS: Ht 147.3 cm; Wt 57.9 kg
--- NOTE | 2025-07-03 14:31 | Physician Documentation ---
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 Seen here in the ED and treated for this and advised to take Benadryl she had her has a symptoms again. States that she has a rapid vision changes which include blurry vision and lines along with jaw trembling. She states it is similar to when she he stood she had IV methamphetamine. Medication Reconciliation Allergies: Coded Allergies: erythromycin base (Verified Allergy, Unknown, ANAPHYLAXIS, 07/03/25) gabapentin (Verified Allergy, Unknown, 07/03/25) thioguanine (Unverified Allergy, Unknown, 05/17/25) tramadol (Unverified Adverse Reaction, Mild, N/V, "CRAZY", 07/03/25) varenicline (Unverified Adverse Reaction, Mild, N/V, "CRAZY", 07/03/25) Scheduled Buprenorphine HCl (Belbuca), 1 APPLIC SL TID, (Reported) Bupropion HCl (Bupropion Xl), 1 TAB PO DAILY, (Reported) Levothyroxine Sodium (Levothyroxine Sodium), 1 TAB PO DAILY, (Reported) Simvastatin (Zocor), 1 TAB PO DAILY, (Reported) Scheduled PRN Hydrocodone Bit/Acetaminophen (Hydrocodon-Acetaminophn 10-325 tablet), 1 TAB PO BID PRN for pain, (Reported) Past Medical History Past Medical History: Asthma, COPD, Chronic Pain, Anxiety, Bipolar, Depression Past Surgical History: orthopedic surgeries, tubal ligation Alcohol Use: None Drug Use: methamphetamine Lives with: Mother, Father Lives In: Home Occupation: employed Review of Systems All Other Systems at this time: Reviewed and Negative ROS As stated above in the HPI, otherwise all systems are reviewed and negative. Physical Exam Physical Exam Vital Signs: Temperature: 97.1, Source: Temporal, Heart Rate: 102, Respiratory Rate: 18, BP: 120/81, Pulse Oximetry: 100, Weight: 57.900 Oxygen Flow Rate: 0 Physical Exam General: Alert, no apparent distress. Respiratory: Lungs clear, no respiratory distress. Cardiovascular: Regular rate and rhythm, no murmurs. Gastrointestinal: Soft, nontender, nondistended. Bowels sounds present. Neurologic: Oriented x4. Psychiatric: Normal mood and affect. Skin: Normal color, warm and dry. No edema, no ecchymosis. Progress Results/Orders Results/Orders Completed Orders - SIDNEY PEREZ PATTERN AND CHAIN MAKER Cbc/Diff (07/03/25 14:29) BMP (07/03/25 14:29) Electrocardiogram (07/03/25 ) Drug Screen, Urine (07/03/25 14:35) Urinalysis, Cult If Indicated (07/03/25 14:35) PBNP (07/03/25 14:36) Vital Signs 07/03/25 07/03/25 07/03/25 13:57 14:31 16:19 Temp 97.1 97.1 Pulse 102 105 89 Resp 18 18 12 B/P (MAP) 120/81 136/78 (97) 102/66 Pulse Ox 100 100 98 O2 Flow Rate 0 Laboratory Tests Test 07/03/25 14:42 07/03/25 15:16 White Blood Count 7.1 Red Blood Count 4.85 Hemoglobin 14.7 Hematocrit 44.0 Mean Corpuscular Volume 90.7 Mean Corpuscular Hemoglobin 30.3 Mean Corpuscular Hemoglobin Concent 33.4 Red Cell Distribution Width 12.5 Platelet Count 313 Mean Platelet Volume 8.9 Neutrophils (%) (Auto) 73.5 Lymphocytes (%) (Auto) 22.8 Monocytes (%) (Auto) 2.7 Eosinophils (%) (Auto) 0.4 Basophils (%) (Auto) 0.6 Neutrophils # (Auto) 5.2 Lymphocytes # (Auto) 1.6 Monocytes # (Auto) 0.2 Eosinophils # (Auto) 0.0 Basophils # (Auto) 0.0 CBC Comment Sodium Level 139 Potassium Level 3.8 Chloride Level 105 Carbon Dioxide Level 25.5 Anion Gap 9 Blood Urea Nitrogen 7 Creatinine 0.77 Estimated GFR/1.73 m2 81 BUN/Creatinine Ratio 9.1 L Glucose Level 122 H Calcium Level 9.0 Pro-B-Type Natriuretic Peptide < 30 Albumin 3.4 Chemistry Comments Urine Specimen Description Voided Urine Color Yellow Urine Clarity Clear Urine pH 5.5 Urine Specific Sloan >=1.030 Urine Protein Negative Urine Glucose (UA) Negative Urine Ketones Negative Urine Occult Blood Negative Urine Nitrite Negative Urine Bilirubin Negative Urine Urobilinogen 0.2 Urine Leukocyte Esterase Negative Urine Culture Indicated Not ind Volume Urine Centrifuged 10 ml Urine Comment Urine Opiates Screen Positive Urine Methadone Screen Negative Urine Fentanyl Screen Negative Urine Barbiturates Screen Negative Urine Phencyclidine Screen Negative Urine Amphetamines Screen Positive Urine Benzodiazepines Screen Negative Urine Cocaine Screen Negative Urine Cannabinoids Screen Negative Drug Screen Comment Medical Decision Making Additional information obtaine: old records Findings Although this patient has said she initially has been clean for an extended period of years, her urine toxic screen suggest otherwise. The her rapid job movements are likely attributed to these findings. Her vision changes are nonspecific, do not currently warrant further investigation. He tracks appropriately and has normal pupillary response. Does not show any signs of diabetes. Suspect the primary reason for her presentation today he has ongoing substance abuse. Differential Diagnosis h Departure Impression: Primary Impression: Methamphetamine addiction Condition: Improved Discharge Instructions: Methamphetamines Use Disorder Referrals: NO PRIMARY CARE PROVIDER (PCP) Signature Scribe Signature: h Attestation: Scribed for Sidney Perez Publicity Director by Sidney Elkins NP . 07/03/25 18:45 SIDNEY PEREZ NP Jul 03, 2025 14:31
--- NOTE | 2025-07-03 14:55 | ELECTROCARDIOGRAPH REPORT ---
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 Valdez Johnson Measurements Intervals Burr Rate: 97 P: 52 WY: 121 QRS: 49 QRSD: 110 T: 33 QT: 354 QTc: 450 Interpretive Statements Sinus rhythm RSR' in V1 or V2, right VCD or RVH Borderline T abnormalities, anterior leads Electronically Signed On 07-04-2025 21:13:[address] Valdez Johnson Please click the below link to view image of tracing.
[2025-07-03 15:02] LABS: MEAN PLATELET VOLUME 8.9 FL (7.4-10.4); RED CELL DISTRIBUTION WIDTH 12.5 % (11.5-14.5)
[2025-07-03 15:10] LABS: CREATININE 0.77 MG/DL (0.40-0.90); PRO BRAIN NATRIURETIC PEPTIDE < 30 PG/ML (0-125); TOTAL CARBON DIOXIDE 25.5 MMOL/L (24-32); eCRCL 60 ML/MIN; eGFR 81 ML/MIN
[2025-07-03 15:31] LABS: LEUKOCYTE ESTERASE ,URINE NEGATIVE (Neg); NITRITES, URINE NEGATIVE (Neg); OCCULT BLOOD,URINE NEGATIVE (Neg)
[2025-07-03 15:36] LABS: UA COLLECTION TYPE VOIDED
[2025-07-03 15:55] LABS: URINE AMPHETAMINE SCREEN POSITIVE (Neg); URINE BARBITUATE SCREEN NEGATIVE (Neg); URINE BENZODIAZEPINES SCREEN NEGATIVE (Neg); URINE CANNABINOID SCREEN NEGATIVE (Neg); URINE COCAINE SCREEN NEGATIVE (Neg); URINE METHADONE SCREEN NEGATIVE (Neg); URINE OPIATE SCREEN POSITIVE (Neg); URINE PHENCYCLIDINE SCREEN NEGATIVE (Neg)
[2025-07-03 16:19] VITALS: BP 102/66; PULSE 89; RESP 12; TEMP 97.1; O2SAT 98
== END 2025-07-03 16:28 | disposition home or self-care (01) ==
LOC: ER 13:56
DX: F15.20 Other stimulant dependence, uncomplicated (principal); F31.9 Bipolar disorder, unspecified; G89.29 Other chronic pain; J44.9 Chronic obstructive pulmonary disease, unspecified; F41.9 Anxiety disorder, unspecified; Z88.1 Allergy status to other antibiotic agents; Z88.5 Allergy status to narcotic agent; Z98.51 Tubal ligation status; Z88.8 Allergy status to other drugs, medicaments and biological substances; Z79.899 Other long term (current) drug therapy
CPT/HCPCS: 36415; 80048; 80305; 81003; 83880; 85025; 93005; 99284